=== PATIENT | male | born 1970 | race American Indian/Alaskan Native ===

== ENCOUNTER 2018-05-01 08:44 | Day surgery (SDC) | payer MEDICARE ==
[~2018-05-01 08:44] MED LIST: ANCEF/STERILE WATER 2 GM/20 ML 2 GM/20 ML SYRINGE IV NR; NACL 0.9% 1000 ML 1,000 ML IV SCH
[2018-05-01] MEDS ORDERED: NACL 0.9% 500 ML 500 ML IV SCH (10:00)
[2018-05-01] MEDS ORDERED: APRESOLINE ONE (11:17)
[2018-05-01] MEDS ORDERED: ANCEF/STERILE WATER 2 GM/20 ML 2 GM/20 ML SYRINGE IV ONE (12:53)
[2018-05-01] MEDS ORDERED: HEPARIN 10,000 UNITS/10 ML ONE (12:53)
[2018-05-01] MEDS ORDERED: XYLOCAINE 2% INFILTRATI ONE (12:53)
[2018-05-01] MEDS ORDERED: HEPARIN/NS 5000 UNIT/500ML(CATH LAB) 1,000 ML IR ONE (12:53)
[2018-05-01] MEDS: VERSED ONE ×2 (13:32→13:36)
[2018-05-01] MEDS: SUBLIMAZE ONE ×2 (13:32→13:36)
[2018-05-01] MEDS ORDERED: NITROGLYCERIN SYRINGE 3 ML ONE (14:11)
[2018-05-01] MEDS ORDERED: SUBLIMAZE ONE (14:16)
[2018-05-01] MEDS ORDERED: VERSED ONE (14:16)
--- NOTE | 2018-05-01 14:28 | Short Stay Summary ---
Short Stay Documentation Date of service: 05/01/18 Narrative H&P: 48 year old male with ESRD and AVF malfunction. - History H&P: obtained from office - Allergies and Medications Current Medications: Allergies amlodipine Allergy (Verified 05/01/18 09:08) Vomiting Home Medications Medication Instructions Recorded Confirmed Last Taken Type Carvedilol [Coreg] 25 mg PO BID #60 tablet 06/18/15 05/01/18 05/01/18 06:00 Rx Cinacalcet HCl [Sensipar] 60 mg PO DAILY 05/01/18 05/01/18 04/27/18 History 60mg Furosemide [Lasix] 20 mg PO BID 05/01/18 05/01/18 05/01/18 06:30 History 20mg cloNIDine [Catapres] 0.1 mg PO BID PRN 05/01/18 05/01/18 04/30/18 History 0.1mg Active Medications Cefazolin Sodium (Ancef/Sterile Water 2 Gm/20 Ml) 2 gm in 20 mls @ 80 mls/hr IV PREOP NR; Protocol Stop: 05/01/18 23:00 Sodium Chloride (Nacl 0.9% 500 Ml) 500 mls @ 50 mls/hr IV DIRECT ASHLEY Last Admin: 05/01/18 13:12 Dose: 100 mls Documented by: - Physical exam General appearance: no acute distress Lungs: Normal air movement Gastrointestinal: normal Extremities: normal temperature, normal color - Brief post op/procedure progress note Date of procedure: 05/01/18 Pre-op diagnosis: AVF malfunction Post-op diagnosis: same Procedure: fistulogram with angioplasty Anesthesia: local (w/ conscious sedation) Surgeon: SCOTT COOPER Estimated blood loss: minimal Condition: stable - Hospital course Hospital course: Ready for discharge. - Disposition Condition at discharge: Stable Disposition: [id number] TO HOME OR SELFCARE - Discharge Diagnoses (1) Dialysis AV fistula malfunction Status: Acute Short Stay Discharge Plan Activity: advance as tolerated Weight Bearing Status: Weight Bear as Tolerated Diet: renal Wound: keep clean and dry Follow up with: ANTONIETTA LARA MD [Primary Care Provider] - 7 Days
--- NOTE | 2018-05-01 14:34 | Operative Report ---
Operative Report Operative Report: EXAM: Ultrasound guided access of the left arm AV fistula towards the anastomosis Placement of a sheath towards the arterial anastomosis Fistulogram Angioplasty of the perianastomotic region with a 6 mm angioplasty balloon DATE: 05/01/18 BARREL PAINTER: SCOTT COOPER MD INDICATION: Left arm AV fistula malfunction, Merlin AV fistula. MEDICATIONS: Please see nursing report for full details. DEVICES: 6 mm angioplasty balloon PROCEDURE: The risks, benefits, and alternatives of the procedure were discussed and written informed consent was obtained. The patient was transported in stable condition to the angiography suite. The patient's left arm AV fistula was assessed by ultrasound and was patent. There is an extensive amount of collaterals noted. The patient was prepped and draped in a sterile fashion. Under ultrasound guidance, the left arm AV Merlin fistula was accessed with a 21-gauge micropuncture needle. The area was anesthetized prior to access. 0.018 inch wire was advanced through the micropuncture needle into the fistula and then the needle was exchanged for a 5 Malian transitional dilator. The inner dilator and wire were removed and a 0.035 inch wire was advanced through the transitional dilator. The transitional dilator was exchanged for a 6 Malian short sheath. Fistulogram was performed of the venous outflow and central veins. Multiple catheters and wires were used to select the radial artery. Digital subtraction angiography was performed. The distal radial artery was patent. The anastomosis was likely patent but very hard to visualize. On ultrasound was patent. The perianastomotic region had multifocal large collaterals and high-grade narrowing with 80% narrowing. The mid and upper forearm had patent veins. The arm had numerous collaterals in the region of the cephalic vein and a large basilic vein which then emptied into the subclavian veins in the internal jugular vein. The left innominate vein was occluded. The SVC filled through cross jugular collaterals from the left side to the right side. The right innominate vein may be somewhat stenotic, it was very hard to see due to the filling through collaterals. 6 mm angioplasty balloon was used to perform angioplasty of the perianastomotic narrowing. This was repeated. There is less than 10% residual narrowing. The wire was removed and the site was closed with a 3-0 Vicryl suture. The sheath was then removed. Hemostasis was achieved with slight manual compression. The patient was transported from the angiography suite to the recovery area in stable condition. IMPRESSION: Successful fistulogram of the peripheral dialysis access as descibed above with a 6 mm angioplasty balloon.
[2018-05-01 15:37] VITALS: BP 147/91
== END 2018-05-01 16:45 | disposition home or self-care (01) ==
LOC: CATHLABREC 08:44
PROVIDERS: ATTEND Radiology Diagnostic Radiology
DX: T82.590A Other mechanical complication of surgically created arteriovenous fistula, initial encounter (principal); I12.0 Hypertensive chronic kidney disease with stage 5 chronic kidney disease or end stage renal disease; N18.6 End stage renal disease; K21.9 Gastro-esophageal reflux disease without esophagitis; Z79.899 Other long term (current) drug therapy; Z99.2 Dependence on renal dialysis; Z98.890 Other specified postprocedural states; Z83.3 Family history of diabetes mellitus; Z82.49 Family history of ischemic heart disease and other diseases of the circulatory system; Z88.8 Allergy status to other drugs, medicaments and biological substances; Z86.73 Personal history of transient ischemic attack (TIA), and cerebral infarction without residual deficits
CPT/HCPCS: 36415; 36902; 84132; 99156; 99157; C1725; C1751; C1769; C1894; J0360; J0690; J1644; J2250; J3010; J7040; Q9967